=== PATIENT | male | born 1955 | race Caucasian/White ===

== ENCOUNTER → 2019-03-31 | Outpatient (CLI) | payer BC, OTHER ==
[~2019-03-31] VITALS: Ht 188 cm; Wt 115.2 kg
[~2019-03-31] MED LIST: ALEVE220 M1 PO; APAP650 PO; ASPIRIN EC81 M1 PO; GRALISE600 MG PO; LIPITOR10 MG PO; LOVAZA1000 MG PO; MULTI-VITAMIN1 EAC5 PO; NEURONTIN 300300 M1 PO; NEURONTIN 300M300 M2 PO; NIASPAN ER 101000 M1 PO; PRAVASTATIN SOD40 MG PO; PRINIVIL5 MG PO; STATIN MED; TRICOR145 MG PO
--- NOTE | ~2019-03-31 | HPC ---
[facility] [address] [address] PAIN MANAGEMENT CONSULTATION Name: ABDIEL IYER Room #: REG [facility]#: [id number] Admission: 03/31/19 Attend Phys: Fermin Kearns MD Discharge: Date of : 59 Report #: [id number] THIS REPORT FOR: //name// CC: Jackie Kearns DATE OF SERVICE: 03/31/2019 CHIEF COMPLAINT: Cervical radiculopathy. Abdiel is the patient who I have seen off and on for almost a decade. He has responded very well to epidural injections and has had just a few over that period of time. He nearly always responds with significant improvement in pain for a long duration. Pain began to return this fall and he describes it as a severe cramping, aching sensation that began in his neck and radiating through his left upper arm. Previous episodes have been in the right. He made the appointment to be seen and then over the last few days to maybe at the last week, his pain has diminished. He is now nearly pain free and we have decided against an injection today. He is concerned, however, that he has numbness at night in his arms and we discussed this as a reasonable time to obtain an MRI to assess the reason for these recurrent problems. MEDICATIONS: Pravastatin, gabapentin, acetaminophen, naproxen, multivitamins, aspirin, lisinopril, fenofibrate. ALLERGIES: None. PHYSICAL EXAMINATION: GENERAL: He is a pleasant, soft spoken gentleman. Blood pressure 117/72, heart rate 81, respirations 16, 6 feet 2 inches, BMI of 32.6. HEENT: Normal. NECK: Supple. He does have some mild increase in pain with rotation, lateral tilt to the left, reproducing symptoms into the left arm, but this is not severe at all and certainly not persistent with normal neck range of motion. Strength is good throughout the biceps, triceps, and brachioradialis. 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 Deep tendon reflexes are 2+ biceps, triceps and brachioradialis. Sensation is intact. Deep tendon reflexes in lower extremity are normally nothing to suggest myelopathy. IMPRESSION: Recurrent severe cervical radiculopathy. RECOMMENDATIONS: I would pursue a diagnostic course at this time and I have [address] [address] PAIN MANAGEMENT CONSULTATION Name: JAYLONABDIEL Helen Room #: REG [facility].#: [id number] Admission: 03/31/19 Attend Phys: Fermin Kearns MD Discharge: Date of : 59 Report #: [id number] ordered an MRI scan without contrast. We will review that by phone. If pain returns, I will consider another epidural injection given his history of good response. By: [id number] Fermin Kearns MD /nt
[2019-03-31 13:32] VITALS: BP 117/72
--- NOTE | 2019-03-31 13:51 | NUR ---
Pain Clinic Assessment: 1. History of Osteoarthritis: B/L HANDS LEFT SHOULDER History of Rheumatoid Arthritis: NONE 2. Height: 6 ft. 2 in. 188.0 cm. Weight: 254.0 lb. oz. 115.214 kg. Patient's BMI: 32.6 3. Vital Signs: BP: 117/72 Pulse: 81 Resp: 16 Temp: 02 Sat: 97 ECG Mon: 4. Pain Intensity: 2-TODAY, 5 AVG 8-WORST 5. Fall Risk: Dizziness: N Needs help standing or walking: N Fallen in the last 3 months: N Fall risk comments: 6. Patient on Blood Thinner: None 7. History of Hypertension: Y 8. Opioid Therapy greater than 6 weeks: Opiate Contract Signed: 9. Risk Assessment Tool Provided: 10. Functional Assessment Tool: 11. Recreational Drug Use: Never Drug Type: Tobacco Use: Never Smoker Tobacco Type: Amount or Packs/day: How Many Years: Alcohol Use: No Frequency: Quant:
== END ==
LOC: PAIN 06:52
DX: M54.12 Radiculopathy, cervical region (principal); Z88.8 Allergy status to other drugs, medicaments and biological substances; Z79.899 Other long term (current) drug therapy

== ENCOUNTER → 2020-04-03 | Outpatient (CLI) | payer BC, OTHER | LOC: SJCVCIMAG 08:29 | PROVIDERS: ATTEND Internal Medicine | DX: I49.3 Ventricular premature depolarization (principal); R00.0 Tachycardia, unspecified; I10 Essential (primary) hypertension; E78.5 Hyperlipidemia, unspecified ==